=== PATIENT | male | born 2000 | race Caucasian/White ===

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

== ENCOUNTER 2018-02-10 09:09 | Emergency (ER) | payer OTHER ==
[2018-02-10 09:22] VITALS: BP 135/83; PULSE 84; TEMP 99.3; BMI 41.0
--- NOTE | 2018-02-10 11:02 | PDOC ---
History of Present Illness - General Chief Complaint: Abscess Boil Stated Complaint: ABCESS/BOIL Time Seen by Provider: 02/10/18 10:53 - History of Present Illness Initial Comments: 02/10/18 10:57 14-year-old male without comorbidities presents for evaluation of right axillary pain. He states he has a painful lump in his right axilla over the last 2-3 days without systemic symptoms. Of note he does take Adderall for ADD Past History - Past Medical History Allergies/Adverse Reactions: Allergies Allergy/AdvReac Type Severity Reaction Status Date / Time No Known Allergies Allergy Verified 07/27/16 12:36 Home Medications: Ambulatory Orders Cephalexin [Keflex] 500 mg PO QID #40 capsule 02/10/18 Ibuprofen [Motrin -] 600 mg PO TID #30 tablet 02/10/18 Sulfamethoxazole/Trimethoprim [Bactrim Ds -] 1 tab PO BID #14 tablet 02/10/18 Asthma: Yes COPD: No - Immunization History Immunization Up to Date: Yes - Suicide/Smoking/Psychosocial Hx Smoking Status: No Smoking History: Never smoked Number of Cigarettes Smoked Daily: 0 Information on smoking cessation initiated: No Hx Alcohol Use: No Drug/Substance Use Hx: Yes (marijuana) Substance Use Type: None Review of Systems - Review of Systems Constitutional: No: Chills, Fever, Malaise, Night Sweats Integumentary: Yes: See HPI, Lesions *Physical Exam - Vital Signs Last Vital Signs Temp Pulse Resp BP Pulse Ox 99.3 F 84 16 135/83 99 02/10/18 09:19 02/10/18 09:19 02/10/18 09:19 02/10/18 09:19 02/10/18 09:19 - Physical Exam Comments: 02/10/18 10:57 HEAD: NC/AT EYES: Conjuntiva clear NEUROLOGIC: No gross sensory or motor deficits, NVID SKIN: Normal color and temperature no lesions or rashes There is an indurated area about 2 cm in circumference in the right axilla with normal overlying skin color and temperature no induration or fluctuance. No gross sensorimotor deficits in the right upper extremity Medical Decision Making - Medical Decision Making 02/10/18 10:59 This may represent a developing abscess. I have recommended warm compresses general surgery follow-up and placed him on a course of Keflex and Bactrim *DC/Admit/Observation/Transfer Diagnosis at time of Disposition: Abscess of axilla, right - Discharge Dispostion Disposition: HOME Condition at time of disposition: Stable Decision to Admit order: No - Referrals Referrals: Long Cummings MD [Primary Care Provider] - Vick Dickens MD [Staff Physician] - - Patient Instructions Additional Instructions: Return to the emergency room should symptoms worsen or go unresolved. Please take the antibiotics and finish the entire course as directed. Follow-up with general surgery in 2-3 days for further evaluation and treatment options. He may add Tylenol for the pain. Use Tylenol as directed I've given you a prescription for Motrin Bactrim and Keflex. Warm compresses 5-6 times a day as we discussed - Post Discharge Activity
== END 2018-02-10 11:07 | disposition home or self-care (01) ==
LOC: JERFT 09:09
DX: L02.411 Cutaneous abscess of right axilla (principal)
CPT/HCPCS: 99281-25

== ENCOUNTER 2020-04-21 19:10 | Emergency (ER) | payer OTHER ==
[2020-04-21 19:22] VITALS: BP 131/77; PULSE 70; TEMP 98.6; BMI 40.3
== END 2020-04-21 22:19 | disposition home or self-care (01) ==
LOC: FER 19:10
DX: S20.211A Contusion of right front wall of thorax, initial encounter (principal); S39.012A Strain of muscle, fascia and tendon of lower back, initial encounter
CPT/HCPCS: 71101-TC-RT-FY; 99283-25